=== PATIENT | male | born 1995 | race Caucasian/White ===

== ENCOUNTER 2022-02-24 17:16 | Emergency (ER) | payer OTHER ==
[~2022-02-24 17:16] MED LIST: IBUPROFEN600 MG PO; PENVEE K 500 M500 MG PO
== END 2022-02-24 19:45 | disposition home or self-care (01) ==
LOC: ER1 17:16
DX: L02.416 Cutaneous abscess of left lower limb (principal); L03.116 Cellulitis of left lower limb; F17.210 Nicotine dependence, cigarettes, uncomplicated
CPT/HCPCS: 99283